=== PATIENT | male | born 1980 | race Caucasian/White ===

== ENCOUNTER 2022-10-12 13:14 | Outpatient (RCR) | payer OTHER, SELFPAY ==
--- NOTE | 2022-10-12 15:09 | PTOPEVAL1 ---
Assessment and note entered by Breann Eastman DPT Evaluation Information Assessment Status Evaluation Diagnosis L knee pain Onset 09/29/2020 Subjective Information Pt reports that pain has insidious onset but feels that he might have moved on it wrong when playing pickleball. Pt denies popping at initial onset or now. He describes pain at the inferior patella that is sharp and hurts with closed chain bending exercises (lunge, squat). Pt reports that he is very active and that his pain does not stop him from doing what he needs to do, but he moves differently. Pt reports that he was prescribed a medication earlier this year that really helped but he is no longer. He has not had an injection. He does not yet have an appointment scheduled. He reports sleep is unaffected. Denies numbness/ tingling. Reported Pain Level Pain Score 0: Self Report Assessment PT Clinical Summary Pt presents to physical therapy with L knee pain and demonstrates decreased range of motion and decreased strength. He presents with signs and symptoms consistent with meniscal involvement or patellofemoral pain. His current deficits make it more challenging for him to perform closed chain interventions such as squats or kneeling as needed for playing sports and playing with his children. He was provided with an HEP focused on improving strength and mobility within his tolerance, and he was educated on more proper form to avoid excessive stress on the knee with closed chain activities. He will benefit from skilled PT to facilitate symptom relief, improve the aforementioned impairments, and return to functional and recreational activities. Plan of Care Interventions Electrical Stimulation,Gait Training,Hot Pack/Cold Pack,Manual Therapy,Neuro Re-education,Patient/ Caregiver Educati,Therapeutic Activities, Therapeutic Exercise PT Services Indicated Yes Treatment Frequency and 1x week for 4 visits Duration These treatments will address the objective and functional deficits as defined above. The patient will be advanced safely and appropriately in order for the patient to progress towards his/her prior level of function. Additional exercises will be introduced and as well as a comprehensive home exercise program upon discharge, if needed, ?to ensure carryover of functional gains achieved in the clinic. This treatment plan has been reviewed and agreement upon by the patient.
--- NOTE | 2022-11-02 13:47 | PTOPDC ---
Assessment and note entered by Breann Eastman DPT Evaluation Information Assessment Status Discharge Diagnosis L knee pain Onset 09/29/2020 Subjective Information Pt reports that his knee feels about the same. He has no pain in his L knee most of the time but has some increased pain with more dynamic activities. He is happy with his progress with PT so far and is comfortable discharging to an indpeendent HEP. Reported Pain Level Pain Score 0: Self Report Assessment PT Clinical Summary Pt presents to skilled PT with significant improvements in pain, quality of life, strength, form with dynamic activities, and mobility. While he is still limited by pain with more dynamic activities, he was educated to continue his current activity level and his HEP independently to maintain the improvements he has made with PT so far. He is to be discharged from skilled PT at this time and is to follow up as needed with his MD regarding his POC going forward. Plan of Care PT Services Indicated No
== END 2022-11-02 10:51 | disposition home or self-care (01) ==
LOC: CHSPT 13:14
DX: M25.562 Pain in left knee (principal)
CPT/HCPCS: 97110; 97161; 97530